=== PATIENT | female | born 1965 | race Caucasian/White ===

== ENCOUNTER 2024-10-27 20:54 | Emergency (ER) | payer MEDICARE, SELFPAY ==
[2024-10-27 21:02] VITALS: BP 161/92; PULSE 66; RESP 16; TEMP 36.7; O2SAT 96; BMI 36.0
--- NOTE | 2024-10-27 23:19 | CTR_ITS ---
PROCEDURE INFORMATION: Exam: CTA Head With Contrast, Arteriography Exam date and time: 10/27/2024 11:46 PM Age: 58 years old Clinical indication: Pain; Headache; Additional info: HX of aneurysm, headache TECHNIQUE: Imaging protocol: Computed tomographic angiography of the head with contrast. Exam focused on the arteries. 3D rendering (Not supervised by radiologist): MIP and/or 3D reconstructed images were created by the technologist. Radiation optimization: All CT scans at this facility use at least one of these dose optimization techniques: automated exposure control; mA and/or kV adjustment per patient size (includes targeted exams where dose is matched to clinical indication); or iterative reconstruction. Contrast material: OMNI 350; Contrast volume: 100 ml; Contrast route: INTRAVENOUS (IV); COMPARISON: CT head wo con* [id number] 10/27/2024 11:46 PM RADIATION DOSE METRICS: Total DLP (mGy-cm): 489.9 FINDINGS: ANTERIOR CIRCULATION: Right internal carotid artery: Intracranial segment is patent with no significant stenosis. 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 Right middle cerebral artery: No occlusion or significant stenosis. No aneurysm. Right anterior cerebral artery: No occlusion or significant stenosis. No aneurysm. Left internal carotid artery: Intracranial segment is patent with no high-grade stenosis. A left cavernous ICA 3 x 1.5 mm aneurysm is possible on series 7, image 256. Left petrous/cavernous ICA [id number] 40-50% stenosis. Left middle cerebral artery: No occlusion or significant stenosis. No aneurysm. Left anterior cerebral artery: No occlusion or significant stenosis. No aneurysm. POSTERIOR CIRCULATION: Right vertebral artery: No occlusion or significant stenosis. No aneurysm. Left vertebral artery: No occlusion or significant stenosis. No aneurysm. Basilar artery: No occlusion or significant stenosis. No aneurysm. Right posterior cerebral artery: No occlusion or significant stenosis. No aneurysm. Left posterior cerebral artery: No occlusion or significant stenosis. No aneurysm. Brain: No focal hemorrhage or midline shift identified. Cerebral ventricles: No evidence of ventriculomegaly or hydrocephalus. The ventricles seem age-appropriate. Bones/joints: Unremarkable. No acute fracture. Soft tissues: Unremarkable. PROCEDURE INFORMATION: Exam: CTA Neck With Contrast Exam date and time: 10/27/2024 11:46 PM Age: 58 years old Clinical indication: Pain; Headache; Additional info: HX of aneurysm, headache TECHNIQUE: Imaging protocol: Computed tomographic angiography of the neck with contrast. Exam focused on the cervical segments of the vasculature. 3D rendering (Not supervised by radiologist): MIP and/or 3D reconstructed images were created by the technologist. Radiation optimization: All CT scans at this facility use at least one of these dose optimization techniques: automated exposure control; mA and/or kV adjustment per patient size (includes targeted exams where dose is matched to clinical indication); or iterative reconstruction. Contrast material: OMNI 350; Contrast volume: 100 ml; Contrast route: INTRAVENOUS (IV); COMPARISON: CT head wo con* [id number] 10/27/2024 11:46 PM RADIATION DOSE METRICS: Total DLP (mGy-cm): 489.9 FINDINGS: Right common carotid artery: No stenosis. No dissection or occlusion. Right internal carotid artery: No stenosis of the extracranial segment. No dissection or occlusion. Right external carotid artery: No occlusion or high-grade stenosis identififed. Left common carotid artery: No stenosis. No dissection or occlusion. Left internal carotid artery: No stenosis of the extracranial segment. No dissection or occlusion. Left external carotid artery: No occlusion or high-grade stenosis identififed. Right vertebral artery: No stenosis. No dissection or occlusion. Left vertebral artery: No stenosis. No dissection or occlusion. Thyroid: Right thyroid 1.7 cm hypodense nodule. Mild thyromegaly. Soft tissues: No significant soft tissue swelling or other acute finding noted. Bones/joints: No acute fracture. C5-C6 ACDF noted. C5-C7 posterior fusion with C6 laminectomy. CT/CT angio headneck* [id number] IMPRESSION: 1. No large vessel high-grade stenosis or occlusion. 2. 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 3. A left cavernous ICA 3 x 1.5 mm aneurysm is possible on series 7, image 256. Not definite. The differential includes tortuosity and vascular ostium. 4. Left petrous/cavernous ICA [id number] 40-50% stenosis. IMPRESSION: 1. No stenosis or occlusion. 2. A few chronic/incidental findings above. COMMENTS: Consistent with the [employer]'s Incidental Findings Committee white paper (J Am [employer]iol 2015): In patients aged 35 years and older with an incidental thyroid nodule equal to or greater than 1.[address], MRI or extrathyroidal US, further evaluation with dedicated thyroid US is recommended for patients with normal life expectancy and without comorbidities. For smaller nodules without suspicious features, no further evaluation or follow up is recommended. REFERENCES: NASCET CRITERIA. The degree of stenosis in the cervical segment of the internal carotid artery is based on NASCET criteria. Normal is no stenosis. Mild is less than 50% stenosis. Moderate is 50-69% stenosis. Severe is 70% to 99% stenosis. Total occlusion is no detectable patent lumen.
--- NOTE | 2024-10-27 23:19 | CTR_ITS ---
PROCEDURE INFORMATION: Exam: CT Head Without Contrast Exam date and time: 10/27/2024 11:46 PM Age: 58 years old Clinical indication: Pain; Headache not specified; -pt presents to ED C/O headache, nausea, HTN, dizziness. 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 Recent mri on neck found it again, PT reports s/s have been worsening x1 wk but has gotten significantly worse 2 days ago. TECHNIQUE: Imaging protocol: Computed tomography of the head without contrast. Radiation optimization: All CT scans at this facility use at least one of these dose optimization techniques: automated exposure control; mA and/or kV adjustment per patient size (includes targeted exams where dose is matched to clinical indication); or iterative reconstruction. COMPARISON: CT angio headneck* [id number] 10/27/2024 11:46 PM RADIATION DOSE METRICS: Total DLP (mGy-cm): 1221.6 FINDINGS: Brain: No focal hemorrhage or midline shift is identified. The ventricles and parenchyma show mild atrophy and chronic bicerebral white matter ischemic change. Cerebral ventricles: No ventriculomegaly or evidence of hydrocephalus. Paranasal sinuses: The partially assessed sinuses are grossly clear. Mastoid air cells: Visualized mastoid air cells are well aerated. Bones: No displaced skull fracture is noted. Partially assessed cervical fusion on topogram. Soft tissues: Unremarkable. Vasculature: Diffuse vascular calcifications are present. CT/CT head wo con* [id number] IMPRESSION: 1. No acute intracranial hemorrhage. 2. Mild age-related changes. 3. CTA pending.
[2024-10-27] MEDS: iohexol 350 mg/mL 500 mL Btl (per mL) IV (23:27)
[2024-10-27] MEDS: diphenhydrAMINE 50 mg/mL SDV 1mL 25 MG IVP (23:37)
[2024-10-27] MEDS: prochlorperazine 10 mg/2 mL Inj IVP (23:39)
[2024-10-27] MEDS: hyDRALAzine 20 mg/mL INJ 1 mL 10 MG IVP (23:41)
[2024-10-27 23:42] LABS: Basophils # 0.1 10^3/uL (0.0-0.1); Basophils % 0.7 %; Eosinophils # 0.4 10^3/uL (0.0-0.8); Eosinophils % 5.5 %; Hematocrit 39.4 % (36-47); Lymphocytes # 2.6 10^3/uL (0.8-4.8); Lymphocytes % 38.7 %; Mean Corpuscular Volume 87.8 fl (85-98); Mean Platelet Volume 10.7 fL (7.4-10.4); Monocytes # 0.5 10^3/uL (0.2-0.9); Monocytes % 6.7 %; Neutrophils # 3.23 10^3/uL (1.8-7.7); Neutrophils % 48.3 %; Nucleated Red Blood Cells % 0 %; Platelet Count 193 10^3/cmm (157-399); Red Blood Count 4.49 10^6/uL (3.85-5.65); Red Cell Distribution Width 13.2 % (12.1-15.1)
[2024-10-27 23:43] VITALS: BP 165/99; PULSE 97; O2SAT 98
[2024-10-27] MEDS: sodium chloride 0.9% 1,000 ML 999 ML IV (23:43)
[2024-10-28] VITALS: BP 145/90; PULSE 82; O2SAT 97
[2024-10-28 00:03] LABS: Alanine Aminotransferase 21 U/L (0-33); Alkaline Phosphatase 46 U/L (35-105); Anion Gap 16.9 (5-19); Aspartate Amino Transferase 20 U/L (0-32); Blood Urea Nitrogen 16 mg/dL (6-20); Calcium 8.9 mg/dL (8.5-10.5); Carbon Dioxide 22 mmol/L (22-29); Chloride 103 mmol/L (98-107); Creatinine Clr Calc Pharmacy 75.2477; Globulin 2.9 g/dL (1.3-4.6); Glomerular Filtration Rate 56.7 mL/min (90-130); Glucose 203 mg/dL (65-115); Osmolality Calculated 293 mOsm/kg (285-295); Potassium 3.9 mmol/L (3.5-5.1); Sodium 138 mmol/L (136-145); Total Bilirubin 0.2 mg/dL (0.15-1.2); Total Protein 6.9 g/dL (6.6-8.7)
--- NOTE | 2024-10-28 00:41 | ED_ITS ---
HPI - Headache 2 General: Chief Complaint: Headache Stated Complaint: Brain Anyerism. severe headache doc sent n/v dizzy Time Seen by Provider: 10/27/24 23:11 History of Present Illness: Patient presents emerged part with complaint of a headache and high blood pressure. She is concerned because she has a history of an aneurysm. She is awaiting to get into see the neurosurgeon to have this further evaluated and treated. She denies having any neurologic deficits. She denies this being a worsening of her life. She denies headache being sudden onset. States her blood pressure normally runs around 140 systolic and today it was up to 180 systolic. Related Data Previous Rx's ?Medication ?Instructions ?Recorded clonidine HCl 0.1 mg tablet 0.1 mg PO Q12H PRN hyperte nsive 10/28/24 emergency #20 tabs Allergies Allergy/AdvReac Type Severity Reaction Status Date / Time No Known Allergies Allergy Verified 10/27/24 21:05 Physical Exam 2 Const: COMMON NORMALS: no acute distress, average body habitus, patient oriented x3, no limitations, healthy appearing, alert and well nourished HENMT: COMMON NORMALS: normocephalic, atraumatic, hearing grossly normal bilaterally, external ears normal, EAC's normal, TM's normal bilaterally, Normal external nose present, Normal nasal mucous membranes and turbinates present, moist oral mucous membranes, oropharynx normal, dentition normal and gingiva normal HEAD & SCALP: normocephalic and atraumatic NOSE: Normal external nose present and Normal nasal mucous membranes and turbinates present E XTERNAL EAR: Yes external ears normal EXTERNAL AUDITORY CANAL: EAC's normal TYMPANIC MEMBRANE: TM's normal bilaterally Neck/C-Spine: COMMON NORMALS: no JVD Resp: COMMON NORMALS: normal respiratory effort, No retractions, No use of accessory muscles, clear to auscultation bilaterally and percussion normal A USCULTATION: clear to auscultation bilaterally PERCUSSION: percussion normal Cardio: COMMON NORMALS: no JVD, regular rate, regular rhythm, S1 normal heart sound present, S2 normal heart sound present, No gallops present (Cardio), No clicks present (Cardio), No murmurs present (Cardio), No rub (Cardio) and Peripheral pulses 2+ throughout RATE: regular rate RHYTHM: regular rhythm HEART SOUNDS: S1 normal heart sound present and S2 normal heart sound present PERIPHERAL PULSES: Peripheral pulses 2+ throughout GI: COMMON NORMALS: Normal to inspection, nondistended, normoactive bowel sounds present, Soft to palpation, non-tender, No hepatosplenomegaly present, no masses and no bruits PALPATION: Yes Soft to palpation and Yes No hepatosplenomegaly present Neuro: COMMON NORMALS: patient oriented x3 SENSORIUM/ORIENTATION: Yes alert CRANIAL NERVES: Yes CN normal except as noted Course 2 Vital Signs: Vital signs: Vital Signs Temperature 98.0 F 10/27/24 21:02 Pulse Rate 97 10/27/24 23:43 Respiratory Rate 16 10/27/24 21:02 Blood Pressure 165/99 10/27/24 23:43 Pulse Oximetry 98 10/27/24 23:43 Oxygen Delivery Me thod Room Air 10/27/24 21:02 MDM - Headache Medical Decision Making Patient presents with headache and hypertension. She does have a history of an aneurysm. Patient was given Compazine and Benadryl and IV fluids and hydralazine and her headache and blood pressure did improve. She currently has no headache. Her CT and CT angio show aneurysm but no evidence of rupture or intracranial hemorrhage. Patient already has follow-up with neurosurgery. Will discharge patient home with clonidine to take for blood pressure elevation and patient to continue her outpatient follow-up with neurosurgery regarding her aneurysm. Lab Data 10/27/24 23:33 10/27/24 23:[address] 10/27/24 23:19 IMPRESSION: 1. No acute intracranial hemorrhage. 2. Mild age-related changes. 3. CTA pending. Head/Neck CTA 10/27/24 23:19 IMPRESSION: 1. No large vessel high-grade stenosis or occlusion. 2. 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 3. A left cavernous ICA 3 x 1.5 mm aneurysm is possible on series 7, image 256. Not definite. The differential includes tortuosity and vascular ostium. 4. Left petrous/cavernous ICA [id number] 40-50% stenosis. IMPRESSION: 1. No stenosis or occlusion. 2. A few chronic/incidental findings above. COMMENTS: Consistent with the [employer]'s Incidental Findings Committee white paper (J [employer]iol 2015): In patients aged 35 years and older with an incidental thyroid nodule equal to or greater than 1.[address], MRI or extrathyroidal US, further evaluation with dedicated thyroid US is recommended for patients with normal life expectancy and without comorbidities. For smaller nodules without suspicious features, no further evaluation or follow up is recommended. REFERENCES: NASCET CRITERIA. The degree of stenosis in the cervical segment of the internal carotid artery is based on NASCET criteria. Normal is no stenosis. Mild is less than 50% stenosis. Moderate is 50-69% stenosis. Severe is 70% to 99% stenosis. Total occlusion is no detectable patent lumen. Laboratory Results WBC 6.70 10^3/uL (3.29-11.43) 10/27/24 23:33 RBC 4.49 10^6/uL (3.85-5.65) 10/27/24 23:33 Hgb 13.00 g/dL (11.27-16.99) 10/27/24 23:33 Hct 39.4 % (36-47) 10/27/24 23:33 MCV 87.8 fl (85-98) 10/27/24 23:33 MCH 29.0 pg (27-33) 10/27/24 23: MCHC 33.0 g/dL (30-55) 10/27/24 23:33 RDW 13.2 % (12.1-15.1) 10/27/24 23:33 Plt Count 193 10^3/cmm (157-399) 10/27/24 23:33 MPV 10.7 fL (7.4-10.4) H 10/27/24 23:33 Neut % (Auto) 48.3 % 10/27/24 23:33 Lymph % (Auto) 38.7 % 10/27/24 23:33 Yell % (Auto) 6.7 % 10/27/24 23:33 Eos % (Auto) 5.5 % 10/27/24 23:33 Baso % (Auto) 0.7 % 10/27/24 23:33 Neut # (Auto) 3.23 10^3/uL (1.8-7.7) 10/27/24 23:33 Lymph # (Auto) 2.6 10^3/uL (0.8-4.8) 10/27/24 23:33 Yell # (Auto) 0.5 10^3/uL (0.2-0.9) 10/27/24 23:33 Eos # (Auto) 0.4 10^3/uL (0.0-0.8) 10/27/24 23:33 Baso # (Auto) 0.1 10^3/uL (0.0-0.1) 10/27/24 23:33 Nucleated RBC % (auto) 0 % 10/27/24 23:33 Nucleated RBCs # 0.0 /100WBC 10/27/24 23:33 Sodium 138 mmol/L (136-145) 10/27/24 23:33 Potassium 3.9 mmol/L (3.5-5.1) 10/27/24 23:33 Chloride 103 mmol/L (98-107) 10/27/24 23:33 Carbon Dioxide 22 mmol/L (22-29) 10/27/24 23:33 Anion Gap 16.9 (5-19) 10/27/24 23:33 BUN 16 mg/dL (6-20) 10/27/24 23:33 Creatinine 1.0 mg/dL (0.5-0.9) H 10/27/24 23:33 GFR Calculation 56.7 mL/min (90-130) L 10/27/24 23:33 Glucose 203 mg/dL (65-115) H 10/27/24 23:33 Calculated Osmolality 293 mOsm/kg (285-295) 10/27/24 23:33 Calcium 8.9 mg/dL (8.5-10.5) 10/27/24 23:33 Total Bilirubin 0.2 mg/dL (0.15-1.2) 10/27/24 23:33 AST 20 U/L (0-32) 10/27/24 23:33 ALT 21 U/L (0-33) 10/27/24 23:33 Alkaline Phosphatase 46 U/L (35-105) 10/27/24 23:33 Total Protein 6.9 g/dL (6.6-8.7) 10/27/24 23:33 Albumin 4.0 g/dL (3.5-5.2) 10/27/24 23:33 Globulin 2.9 g/dL (1.3-4.6) 10/27/24 23:33 All radiology interpretation(s) finalized by discharge Discharge Plan Discharge Patient Disposition: Home Clinical Impression: Aneurysm Headache Qualifiers: Headache type: unspecified Headache chronicity pattern: unspecified pattern I ntractability: not intractable Qualified Code(s): R51.9 - Headache, unspecified HTN (hypertension) Qualifiers: Hypertension type: unspecified Qualified Code(s): I10 - Essential (primary) hypertension Condition: Stable Prescriptions: New clonidine HCl 0.1 mg tablet 0.1 mg PO Q12H PRN (Reason: hypertensive emergency) Qty: 20 0RF Rx Instructions: take if bp greater than 160/100 Discharge Orders: Discharge ED (Routine); Ordered 10/28/24 Ordered By: Martin Correia Referrals: Peg Chun FNP [Primary Care Provider, Family Practice] Patient Instructions: Opioid Safety, Pain Management Print Language: [place] Coding Level of Care Code ED Procurement Officer for Antione Mukherjee
[2024-10-28 01:52] VITALS: BP 152/95; PULSE 87; O2SAT 97
== END 2024-10-28 01:10 | disposition home or self-care (01) ==
PROVIDERS: Emergency Provider Emergency Medicine
DX: R51.9 Headache, unspecified (principal); I10 Essential (primary) hypertension; Z86.79 Personal history of other diseases of the circulatory system
CPT/HCPCS: 70450; 70496; 70498; 80053; 85025; 96374; 96375; 99285; J0360; J0780; J1200; J7030

== ENCOUNTER 2024-12-20 05:00 | Outpatient (RCR) | payer MEDICARE, SELFPAY | END 2025-01-19 23:59 | disposition home or self-care (01) | LOC: SPT 05:00 | DX: H81.12 Benign paroxysmal vertigo, left ear (principal) | CPT/HCPCS: 97161 ==

== ENCOUNTER 2025-01-20 05:00 | Outpatient (RCR) | payer MEDICARE, SELFPAY | END 2025-02-19 23:59 | disposition home or self-care (01) | LOC: SPT 05:00 | DX: H81.12 Benign paroxysmal vertigo, left ear (principal) | CPT/HCPCS: 95992 ==